=== PATIENT | female | born 1995 | race Caucasian/White ===

== ENCOUNTER → 2019-04-22 11:38 | Outpatient (BNVA) | payer MEDICAID, SELFPAY | PROVIDERS: PCP Nurse Practitioner; Visit Provider Nurse Practitioner Women's Health | DX: Z36.9 Encounter for antenatal screening, unspecified (principal); R79.89 Other specified abnormal findings of blood chemistry; O26.899 Other specified pregnancy related conditions, unspecified trimester; Z67.91 Unspecified blood type, Rh negative; O21.9 Vomiting of pregnancy, unspecified; N83.202 Unspecified ovarian cyst, left side | CPT/HCPCS: 81003; 85007; 85027 ==

== ENCOUNTER → 2019-05-20 09:55 | Outpatient (BNVA) | payer MEDICAID, SELFPAY | PROVIDERS: PCP Nurse Practitioner; Referring Provider Obstetrics & Gynecology; Visit Provider Obstetrics & Gynecology | DX: Z34.82 Encounter for supervision of other normal pregnancy, second trimester (principal) | CPT/HCPCS: 76805 ==

== ENCOUNTER 2019-05-20 13:32 | Outpatient (CLI) | payer MEDICAID, SELFPAY ==
[2019-05-20 15:40] LABS: Basophils # 0.1 10^3/uL (0.0-0.1); Basophils % 0.5 %; Eosinophils # 0.1 10^3/uL (0.0-0.8); Eosinophils % 0.7 %; Hematocrit 33.8 % (37.0-47.0); Hemoglobin 11.1 g/dL (11.5-15.3); Lymphocytes # 2.1 10^3/uL (0.8-4.8); Lymphocytes % 16.8 %; Mean Corpuscular HGB Conc 32.8 g/dL (30.0-36.0); Mean Corpuscular Hemoglobin 30.6 pg (28.0-34.0); Mean Corpuscular Volume 93.1 fL (81-99); Mean Platelet Volume 9.1 fL (7.4-10.4); Monocytes # 0.9 10^3/uL (0.2-0.9); Monocytes % 6.9 %; Neutrophils # 9.4 10^3/uL (1.8-7.7); Neutrophils % 74.4 %; Nucleated Red Blood Cells % 0 %; Platelet Count 541 10^3/cmm (130-400); Red Blood Count 3.63 10^6/uL (4.1-5.3); Red Cell Distribution Width 14.3 % (12.1-15.1); White Blood Count 12.6 10^3/uL (4.0-10.0)
[2019-05-20 16:12] LABS: Alanine Aminotransferase 20 U/L (0-33); Albumin Level 3.4 g/dL (3.5-5.2); Alkaline Phosphatase 97 IU/L (35-105); Anion Gap 21.8 (5-19); Aspartate Amino Transferase 19 U/L (0-32); Blood Urea Nitrogen 6 mg/dL (6-20); Carbon Dioxide 21 mmol/L (22-29); Chloride 99 mmol/L (98-107); Globulin 4.2 g/dL (1.3-4.6); Glomerular Filtration Rate 150.3 mL/min (90-130); Glucose 128 mg/dL (65-115); Iron 60 ug/dL (37-145); Lactate Dehydrogenase 153 U/L (135-214); Percent Saturation 14.7 % (20-50); Potassium 3.8 mmol/L (3.5-5.1); Sodium 138 mmol/L (136-145); Total Bilirubin 0.4 mg/dL (0.15-1.2); Total Iron Binding Capacity 406 mcg/dl; Total Protein 7.6 g/dL (6.6-8.7); Unsaturated Iron Binding 346 ug/dL (112-347)
[2019-05-20 17:04] LABS: LAB Peripheral Smear Sent for Review
--- NOTE | 2019-05-20 18:33 | ONC CON_ITS ---
Dr. Sanchez New Patient Note Patient: Chelsea Sebastian Unit #: [id number]: [id number] Dicatated By: Oleg Sanchez M.D.Date of Visit: May 20, 2019 Onc MED New Patient/Consult Referring Physician: Dr. Edgar De Los Santos M.D. Chief Complaint: Thrombocytosis. History of Present Illness: This is a 24 year-old woman with mild thrombocytosis. This patient has been in good general health. She currently is in her 1st with her estimated date of delivery on October 05. She had been seen in the emergency room on 02/07/2019 with abdominal cramping and spotting. Her urine test was positive. ultrasound was consistent with a 5-week . Her CBC at that time showed normal hemoglobin at 13.2 g with hematocrit 38.6 %. The white blood cell count was mildly elevated at 11,900 and the platelet count was mildly elevated at 488,000. Her comprehensive metabolic profile showed normal renal function with BUN 8 and creatinine 0.5 mg/dL. The liver enzymes were slightly elevated with SGOT 53/32 and the SGPT 82/33 U/L. The alkaline phosphatase was 109/105 IU/L. On 04/22/2019 she had a scheduled OB follow-up visit with Lilian Roca. Her repeat CBC showed hemoglobin down slightly at 11.9 g with white blood cell count 11,900 and platelet count 512,000. A previous CBC done through the urgent care on 05/01/2018 showed normal hemoglobin at 13.8 g with white blood cell count 8900 and platelet count mildly elevated at 462,000. Comprehensive metabolic profile at that time showed normal liver enzymes. She has been feeling pretty good generally. She does have some fatigue with the , but she has normal activity. Her appetite is pretty good. She does not have fever. She complains that she feels hollow all the time, and she also tends to sweat a lot. She does not complain of shortness of breath, cough, or chest pain. She has no GI complaints other than her bowels tend to fluctuate between constipation and diarrhea. She has frequent urination. She has no significant joint or bone pain. She has just occasional headache. She recently has had some dizziness. She has no focal neurologic symptoms. She has had a tendency to bruise easily, mainly on her legs, but that is not anything new. Past Medical History: She has had no prior medical illnesses. Past Surgical History: She has had no prior surgeries. Medications: Vitamins 1 Tablet Oral daily Allergies: No Known Allergies. Social History: Ms. Sebastian is single. She has a life partner. She is a non-smoker. She does not drink alcohol. Family History: Her father is in good health. She has no knowledge regarding the health of her biologic mother. She also has a half-sister with whom she has no contact. A paternal aunt was treated for breast cancer. Review Of Symptoms: Constitutional - She feels pretty good, but she is tired. She has normal activity. Her appetite is good and her weight is steadily increasing due to her . No fever or chills. She has hot flashes and sweating. ECOG score is 0, Eyes - No change in vision, ENMT - No hearing loss or tinnitus. She has sinus congestion. No mouth sores. No sore throat or difficulty swallowing, Hematologic/Lymphatic - She bruises easily, Respiratory - No shortness of breath. No cough. No pleuritic pain or hemoptysis, Cardiovascular - No angina pain. No palpitations, Gastrointestinal - No nausea or vomiting. She has heartburn. Her bowels fluctuate between diarrhea and constipation. No blood in the stool or black stools, Genitourinary (F) - No dysuria or hematuria. She has urinary frequency. No urgency or incontinence, Musculoskeletal - No joint or bone pain, Integumentary - No skin complications, Neurologic - She has occasional headaches. She has some dizziness at times. No numbness/paresthesias or other focal neurologic symptoms, Psychiatric - She gets anxious easily. She is having more difficulty sleeping at night as her gets further along. Vital Signs: Performed on May 20, 2019 14:13: 0, 34.73 (HIGH), 2.31 sq.m, 71.00 in, 100 %, 94 /min, 20 /min, 141/95 mm(hg) (HIGH), 97.8 F (LOW), and 249.0 lbs (HIGH). Physical Examination: Constitutional - She appears to be in good general health, Eyes - Sclerae nonicteric. Conjunctivae clear, ENMT - No lesions noted in the oral cavity, Neck - No mass or thyromegaly, Hematologic/Lymphatic - No cervical, clavicular, or axillary adenopathy, Respiratory - Lungs are clear with good air movement bilaterally, Cardiovascular - Heart rhythm is regular. There is no murmur, gallop, or rub noted, Abdomen - Distended with gravid uterus. Liver and spleen do not appear enlarged. There is no abdominal mass or ascites noted and there is no inguinal adenopathy, Extremities - No edema. Pedal pulses are palpable bilaterally, Integumentary - No rashes. No suspicious skin lesions noted, Neurologic - No focal neurologic deficits noted. Impression: 1. Patient with mild thrombocytosis. Etiology is uncertain. Her platelet count has increased a little since initial CBC in April 2018, but it is uncertain to what extent that may just be reactive. At this point a myeloproliferative disorder cannot be excluded, but it would be unusual at this age. 2. She has mild leukocytosis and mild anemia, but those are most likely just related to . 3. She also had mildly elevated liver enzymes. Etiology/clinical significance is uncertain. 4. She is in her first with estimated date of delivery on October 05. Plan: The laboratory findings were reviewed with the patient and we discussed the clinical implications. She has a mildly elevated platelet count, some component of which may just be reactive. As noted, a myeloproliferative disorder cannot be excluded, but it would be unusual at her age. She will have additional laboratory studies today to include a repeat CBC and comprehensive metabolic profile along with LDH level, serum iron studies, and a FISH study for BCR/abl. I will review the blood smear. She will have further evaluation as indicated. However, as this is not likely to be an urgent issue, I will most likely want to just reassess her sometime within 3 to 6 months after her delivery. Signed By: Oleg Sanchez M.D. <<Signature on File>>
[2019-06-03 13:42] LABS: Miscellaneous Test See Scanned Lab Rpt
[2019-07-15 21:17] LABS: LAB Peripheral Smear Sent for Review
== END 2019-05-20 13:33 | disposition home or self-care (01) ==
PROVIDERS: Internal Medicine Medical Oncology; Referring Provider Obstetrics & Gynecology; Visit Provider Internal Medicine Hematology & Oncology
DX: O26.899 Other specified pregnancy related conditions, unspecified trimester (principal); Z3A.00 Weeks of gestation of pregnancy not specified; D47.3 Essential (hemorrhagic) thrombocythemia; R74.8 Abnormal levels of other serum enzymes
CPT/HCPCS: 80053; 83540; 83550; 83615; 85025; 88374; 99204

== ENCOUNTER → 2019-05-26 08:53 | Outpatient (BNVA) | payer MEDICAID, SELFPAY | PROVIDERS: Visit Provider Obstetrics & Gynecology | DX: Z01.89 Encounter for other specified special examinations (principal) | CPT/HCPCS: 84315 ==

== ENCOUNTER → 2019-06-20 15:20 | Outpatient (BNVA) | payer MEDICAID, SELFPAY | PROVIDERS: Visit Provider Obstetrics & Gynecology | DX: Z34.90 Encounter for supervision of normal pregnancy, unspecified, unspecified trimester (principal) | CPT/HCPCS: 82950; 84315 ==

== ENCOUNTER → 2019-07-09 08:30 | Outpatient (BNVA) | payer MEDICAID, SELFPAY | PROVIDERS: Visit Provider Obstetrics & Gynecology | DX: Z34.90 Encounter for supervision of normal pregnancy, unspecified, unspecified trimester (principal) | CPT/HCPCS: 82951; 82952 ==

== ENCOUNTER → 2019-07-14 12:59 | Outpatient (BNVA) | payer MEDICAID, SELFPAY | PROVIDERS: Visit Provider Obstetrics & Gynecology Female Pelvic Medicine and Reconstructive Surgery | DX: Z34.00 Encounter for supervision of normal first pregnancy, unspecified trimester (principal); O26.899 Other specified pregnancy related conditions, unspecified trimester; Z67.91 Unspecified blood type, Rh negative | CPT/HCPCS: 81000; 85025; 86850 ==

== ENCOUNTER → 2019-07-29 08:40 | Outpatient (BNVA) | payer MEDICAID, SELFPAY | PROVIDERS: Visit Provider Obstetrics & Gynecology | DX: Z34.00 Encounter for supervision of normal first pregnancy, unspecified trimester (principal) | CPT/HCPCS: 81000 ==

== ENCOUNTER → 2019-08-06 10:59 | Outpatient (BNVA) | payer MEDICAID, SELFPAY | PROVIDERS: Visit Provider Obstetrics & Gynecology | DX: Z34.03 Encounter for supervision of normal first pregnancy, third trimester (principal); Z3A.34 34 weeks gestation of pregnancy | CPT/HCPCS: 76816 ==

== ENCOUNTER → 2019-08-11 09:03 | Outpatient (BNVA) | payer MEDICAID, SELFPAY | PROVIDERS: Visit Provider Obstetrics & Gynecology | DX: Z34.90 Encounter for supervision of normal pregnancy, unspecified, unspecified trimester (principal); O26.899 Other specified pregnancy related conditions, unspecified trimester; Z67.91 Unspecified blood type, Rh negative; Z34.03 Encounter for supervision of normal first pregnancy, third trimester; O99.213 Obesity complicating pregnancy, third trimester | CPT/HCPCS: 81000 ==

== ENCOUNTER → 2019-09-08 16:10 | Outpatient (BNVA) | payer MEDICAID, SELFPAY | PROVIDERS: Visit Provider Obstetrics & Gynecology | DX: O26.899 Other specified pregnancy related conditions, unspecified trimester (principal); Z67.91 Unspecified blood type, Rh negative; O99.213 Obesity complicating pregnancy, third trimester; O26.893 Other specified pregnancy related conditions, third trimester; O99.89 Other specified diseases and conditions complicating pregnancy, childbirth and the puerperium; D47.3 Essential (hemorrhagic) thrombocythemia; Z3A.36 36 weeks gestation of pregnancy | CPT/HCPCS: 81000; 87081 ==

== ENCOUNTER → 2019-09-16 09:35 | Outpatient (BNVA) | payer MEDICAID, SELFPAY | PROVIDERS: Visit Provider Obstetrics & Gynecology | DX: O26.899 Other specified pregnancy related conditions, unspecified trimester (principal); Z67.91 Unspecified blood type, Rh negative | CPT/HCPCS: 76816; 81000 ==

== ENCOUNTER → 2019-09-22 15:33 | Outpatient (BNVA) | payer MEDICAID, SELFPAY | PROVIDERS: Visit Provider Obstetrics & Gynecology | DX: O26.899 Other specified pregnancy related conditions, unspecified trimester (principal); Z67.91 Unspecified blood type, Rh negative | CPT/HCPCS: 81000 ==

== ENCOUNTER → 2019-09-25 10:52 | Outpatient (BNVA) | payer MEDICAID, SELFPAY | PROVIDERS: Visit Provider Obstetrics & Gynecology | DX: Z3A.39 39 weeks gestation of pregnancy; Z36.89 Encounter for other specified antenatal screening | CPT/HCPCS: 76816 ==

== ENCOUNTER 2019-09-28 20:45 | Outpatient (CLI) | payer MEDICAID, SELFPAY ==
[2019-09-28 21:00] VITALS: BMI 38.7
[2019-09-28 21:10] VITALS: BP 136/84; PULSE 109; RESP 18; TEMP 36.9
[2019-09-28 21:27] VITALS: RESP 17
[2019-09-28 22:24] VITALS: BP 0/0
[2019-09-28 22:27] VITALS: BP 146/92; PULSE 97
[2019-09-28 22:30] VITALS: RESP 18
[2019-09-28 23:26] VITALS: BP 152/88; PULSE 93
[2019-09-29] VITALS (10 sets, daily range): BP systolic 0–159; BP diastolic 0–96; PULSE 88–101; RESP 18; TEMP 36.7
[2019-09-29 01:09] LABS: Basophils # 0.1 10^3/uL (0.0-0.1); Basophils % 0.4 %; Eosinophils # 0.1 10^3/uL (0.0-0.8); Eosinophils % 0.6 %; Hematocrit 33.7 % (37.0-47.0); Hemoglobin 10.5 g/dL (11.5-15.3); Lymphocytes # 2.6 10^3/uL (0.8-4.8); Lymphocytes % 20.8 %; Mean Corpuscular HGB Conc 31.2 g/dL (30.0-36.0); Mean Corpuscular Hemoglobin 27.5 pg (28.0-34.0); Mean Corpuscular Volume 88.2 fL (81-99); Mean Platelet Volume 10.2 fL (7.4-10.4); Monocytes # 0.9 10^3/uL (0.2-0.9); Monocytes % 7.3 %; Neutrophils # 8.7 10^3/uL (1.8-7.7); Neutrophils % 69.4 %; Nucleated Red Blood Cells # 0.1 /100WBC; Nucleated Red Blood Cells % 0.9 %; Platelet Count 425 10^3/cmm (130-400); Red Blood Count 3.82 10^6/uL (4.1-5.3); Red Cell Distribution Width 17.5 % (12.1-15.1); White Blood Count 12.5 10^3/uL (4.0-10.0)
[2019-09-29 01:10] LABS: Alanine Aminotransferase < 5 U/L (0-33); Albumin Level 3.5 g/dL (3.5-5.2); Alkaline Phosphatase 116 IU/L (35-105); Anion Gap 21.1 (5-19); Aspartate Amino Transferase 16 U/L (0-32); Blood Urea Nitrogen 11 mg/dL (6-20); Calcium 9.5 mg/dL (8.5-10.5); Carbon Dioxide 19 mmol/L (22-29); Chloride 102 mmol/L (98-107); Globulin 3.6 g/dL (1.3-4.6); Glomerular Filtration Rate 121.8 mL/min (90-130); Glucose 84 mg/dL (65-115); Osmolality Calculated 281 mOsm/kg (285-295); Potassium 4.1 mmol/L (3.5-5.1); Sodium 138 mmol/L (136-145); Total Bilirubin 0.4 mg/dL (0.15-1.2); Total Protein 7.1 g/dL (6.6-8.7); Uric Acid 5.3 mg/dL (2.4-5.7)
[2019-09-29 01:39] LABS: Add Urine Microscopic? YES; Bilirubin Urine Neg (NEGATIVE); Blood Urine 3+ (Negative); Glucose Urine UA Norm (Normal); Ketones Urine Negative (Negative); Leukocyte Esterase Urine 1+ (Negative); Nitrate Urine Negative (Negative); Protein Urine Neg (Negative); Specific Gravity, Urine 1.005 (1.005-1.030); Urine Appearance SL Hazy (CLEAR); Urine Color Yellow (Yellow); Urobilinogen Urine Norm (Negative); pH Urine 6.5 (5-7)
[2019-09-29 01:40] LABS: RBC Urine 0-4 /hpf (0-2)
[2019-09-29 01:41] LABS: Bacteria Urine TRACE; Transitional Epi Cells Urine 0-4 /hpf
[2019-09-29 01:42] LABS: Mucus Urine 1+
[2019-09-29 01:43] LABS: Add Urine Culture? No; Calcium Oxalate Crystals Urine 0-4 /hpf
[2019-09-29 02:30] LABS: Urine Creatinine 132 mg/dL (28-217)
[2019-09-29 02:32] LABS: UPRO/UCREAT Ratio 0.27 mg/mg CR; Urine Protein Random 36 mg/dL
== END 2019-09-29 02:07 | disposition home or self-care (01) ==
LOC: OPOB 20:54 → OBGYN 20:55
PROVIDERS: Visit Provider Obstetrics & Gynecology
DX: O26.899 Other specified pregnancy related conditions, unspecified trimester (principal); Z3A.00 Weeks of gestation of pregnancy not specified; R10.9 Unspecified abdominal pain
CPT/HCPCS: 36415; 80053; 81001; 82570; 84156; 84550; 85025; 99211

== ENCOUNTER 2019-09-30 | Inpatient (IN) | payer MEDICAID, SELFPAY ==
[2019-09-29] VITALS (35 sets, daily range): BP systolic 0–167; BP diastolic 0–98; PULSE 81–122; RESP 16–20; TEMP 36.8; O2SAT 98–99; BMI 39.0
[2019-09-29 19:23] LABS: Basophils % 0.3 %; Eosinophils % 0.3 %; Hematocrit 31.4 % (37.0-47.0); Hemoglobin 9.6 g/dL (11.5-15.3); Lymphocytes # 1.9 10^3/uL (0.8-4.8); Lymphocytes % 16.6 %; Mean Corpuscular HGB Conc 30.6 g/dL (30.0-36.0); Mean Corpuscular Hemoglobin 26.7 pg (28.0-34.0); Mean Corpuscular Volume 87.2 fL (81-99); Mean Platelet Volume 10.5 fL (7.4-10.4); Monocytes # 0.6 10^3/uL (0.2-0.9); Monocytes % 5.1 %; Neutrophils % 76.9 %; Nucleated Red Blood Cells # 0.1 /100WBC; Nucleated Red Blood Cells % 0.4 %; Platelet Count 374 10^3/cmm (130-400); Red Cell Distribution Width 17.5 % (12.1-15.1); White Blood Count 11.7 10^3/uL (4.0-10.0)
[2019-09-29] MEDS: miSOPROStol 100 mcg tablet 25 MCG VAGINAL (20:00)
[2019-09-29 20:28] LABS: Slide Review Slide Review Perform
[2019-09-29 22:20] LABS: Urine Appearance Hazy (CLEAR); Urine Color Yellow (Yellow)
[2019-09-29 22:21] LABS: Add Urine Microscopic? YES; Bilirubin Urine Neg (NEGATIVE); Blood Urine 2+ (Negative); Glucose Urine UA Norm (Normal); Ketones Urine Negative (Negative); Leukocyte Esterase Urine 1+ (Negative); Nitrate Urine Negative (Negative); Protein Urine Neg (Negative); Specific Gravity, Urine 1.005 (1.005-1.030); Urobilinogen Urine Norm (Negative); pH Urine 7 (5-7)
[2019-09-29 22:23] LABS: Add Urine Culture? No; Bacteria Urine 1+; RBC Urine 0-4 /hpf (0-2); Squamous Epithelial Cell Urine 15-25 (0-5)
[2019-09-29 22:24] LABS: Alanine Aminotransferase 11 U/L (0-33); Albumin Level 3.3 g/dL (3.5-5.2); Alkaline Phosphatase 103 IU/L (35-105); Anion Gap 19.7 (5-19); Aspartate Amino Transferase 16 U/L (0-32); Blood Urea Nitrogen 7 mg/dL (6-20); Calcium 8.9 mg/dL (8.5-10.5); Carbon Dioxide 19 mmol/L (22-29); Chloride 104 mmol/L (98-107); Globulin 3.1 g/dL (1.3-4.6); Glomerular Filtration Rate 150.3 mL/min (90-130); Glucose 100 mg/dL (65-115); Osmolality Calculated 284 mOsm/kg (285-295); Potassium 3.7 mmol/L (3.5-5.1); Sodium 139 mmol/L (136-145); Total Bilirubin 0.4 mg/dL (0.15-1.2); Total Protein 6.4 g/dL (6.6-8.7)
[2019-09-29 22:25] LABS: Uric Acid 5.1 mg/dL (2.4-5.7)
[2019-09-29 23:01] LABS: Urine Creatinine 127 mg/dL (28-217)
[2019-09-29 23:02] LABS: UPRO/UCREAT Ratio 0.19 mg/mg CR; Urine Protein Random 24 mg/dL
[2019-09-29] MEDS: dextrose 5%-lactated ringers 1,000 ML 125 ML IV (23:34)
[2019-09-29] MEDS: magnesium sulfate premix 4 GM/100 ML PREMIX IV (23:35)
[2019-09-29] MEDS: magnesium sulfate premix 20 GM/500 ML BAG IV (23:58)
[2019-09-30] VITALS (300 sets, daily range): BP systolic 0–167; BP diastolic 0–94; PULSE 64–112; RESP 16–20; TEMP 36.6–37; O2SAT 0–100
--- NOTE | 2019-09-30 04:58 | ANES.PREANE2 ---
Pre-Anesthetic Assessment Pre-Anesthetic Assessment: Height/Weight: Height 1.8 m Weight 127.006 kg Temp Pulse Resp BP Pulse Ox 98.3 F 94 16 141/74 96 09/29/19 23:14 09/30/19 04:56 09/29/19 23:14 09/30/19 04:56 09/30/19 04:55 Preop Diagnosis: IUP Proposed Procedure: Labor epidural Was Beta Siobhan taken within 24 hours: N/A Last Intake: 00:00 Social: Social History: No alcohol and No tobacco Exam: Pre-Anes Outpt Exam: alert, oriented x 3 and clear to auscultation bilaterally Airway: Submandibular: WNL Cervical ROM: WNL MP: 2 History/ROS: No significant history except as noted Pulmonary: Pulmonary: None reported CV/HEM: CV/HEM: HTN : : None reported Hepatic: Hepatic: None reported GI: GI: GERD Metabolic: Metabolic: Morbid obesity Musc/skel: Musc/skel: None reported Neuropsych: Neuropsych: None reported Anesthetic Plan: ASA status: 2 Anesthesia: Anesthesia Evaluation and Eval. for regional block Meds/Allergies Current Medications: Current Medications Generic Name Dose Route Start Last Admin Trade Name Freq PRN Reason Stop Dose Admin Dextrose/Lactated Ringer's 1,000 mls @ 125 m ls/hr 09/29/19 18:42 09/29/19 23:35 Dextrose 5%-Lact ated Ringers IV 75 mls/hr .Q8H PRN Infusion per label comment s Magnesium Sulfate 20 gm in 500 mls @ 50 mls/hr 09/29/19 23:15 09/29/19 23:58 Magnesium Sulfat e Premix IV 50 mls/hr .Q10H EULALIA Administration Misoprostol 25 mcg 09/29/19 20:00 09/29/19 20:00 Cytotec VAGINAL 25 mcg Q4H PRN Administration Cervical Ripening PFSH Anesthesia PFSH: Medical History (Updated 09/29/19 @ 16:34 by Edgar De Los Santos MD) Left ovarian cyst 23 y/o with an LMP of 12/30/2018 and an EDC of 10/06/2019 which places her at 6 0/7 weeks gestation who presents today for an ER follow up for left ovarian cyst. She is asymptomatic. Patient counseled regarding the ultrasound findings suggestive of left ovarian cyst during the ER visit most likely a corpus luteum cyst this early in the . Serial ultrasound follow-up was recommended and encourage her to start care. Follow-up in one week Patient denies medical problems Denies history of: (high blood pressure, diabetes, heart, lung, liver, kidney, thyroid,dvt/pe, partner w/o history of herpes Thrombocytosis Platelets in 500,000 range during . Evaluated by Dr. Sanchez on 05/20/2019. Recommended follow-up appointment 3-6 months after delivery Surgical History No history of previous surgery Family History Family/Other Breast cancer Paternal aunt Hypertension Paternal aunt Patient denies medical problems Denies family history of: diabetes mellitus, heart disease, stroke, hypercholesterolemia, thryoid problems, ovarian cancer, uterine cancer,or colon cancer. Grandfather Diabetes Maternal grandfather Social History Smoking and tobacco status: never smoked Alcohol intake: current Alcohol intake frequency: holidays/special occasions only Female Reproductive History: : 1 Data Anesthesia CBC & Chem 7: 09/29/19 19:00 09/29/19 21:50 Other Labs: Laboratory Results - last 48 hr 09/29/19 09/29/19 09/29/19 19:00 21:50 21:50 WBC 11.7 H RBC 3.60 L Hgb 9.6 L Hct 31.4 L MCV 87.2 MCH 26.7 L MCHC 30.6 RDW 17.5 H Plt Count 374 MPV 10.5 H Neut % (Auto) 76.9 Lymph % (Auto) 16.6 [place] % (Auto) 5.1 Eos % (Auto) 0.3 Baso % (Auto) 0.3 Neut # (Auto) 9.0 H Lymph # (Auto) 1.9 [place] # (Auto) 0.6 Eos # (Auto) 0.0 Baso # (Auto) 0.0 Nucleated RBC % (auto) 0.4 Nucleated RBCs # 0.1 Sodium Potassium Chloride Carbon Dioxide Anion Gap BUN Creatinine GFR Calculation Glucose Calculated Osmolality Uric Acid Calcium Total Bilirubin AST ALT Alkaline Phosphatase Total Protein Albumin Globulin Urine Color Yellow Urine Appearance Hazy A Urine pH 7 Ur Specific [place] 1.005 Urine Protein Neg Urine Glucose (UA) Norm Urine Ketones Negative Urine Blood 2+ H Urine Nitrate Negative Urine Bilirubin Neg Urine Urobilinogen Norm Ur Leukocyte Esterase 1+ H Urine RBC 0-4 H Urine WBC 5-10 H Ur Squamous Epith Cells 15-25 H Ur Transition Epith Cell 5-10 Urine Bacteria 1+ H U Random Total Protein 24 Urine Creatinine 127 Protein/Creatinin Ratio 0.19 09/29/19 09/29/19 21:50 21:50 WBC RBC Hgb Hct MCV MCH MCHC RDW Plt Count MPV Neut % (Auto) Lymph % (Auto) [place] % (Auto) Eos % (Auto) Baso % (Auto) Neut # (Auto) Lymph # (Auto) [place] # (Auto) Eos # (Auto) Baso # (Auto) Nucleated RBC % (auto) Nucleated RBCs # Sodium 139 Potassium 3.7 Chloride 104 Carbon Dioxide 19 L Anion Gap 19.7 H BUN 7 Creatinine 0.5 GFR Calculation 150.3 H Glucose 100 Calculated Osmolality 284 L Uric Acid 5.1 Calcium 8.9 Total Bilirubin 0.4 AST 16 ALT 11 Alkaline Phosphatase 103 Total Protein 6.4 L Albumin 3.3 L Globulin 3.1 Urine Color Urine Appearance Urine pH Ur Specific [place] Urine Protein Urine Glucose (UA) Urine Ketones Urine Blood Urine Nitrate Urine Bilirubin Urine Urobilinogen Ur Leukocyte Esterase Urine RBC Urine WBC Ur Squamous Epith Cells Ur Transition Epith Cell Urine Bacteria U Random Total Protein Urine Creatinine Protein/Creatinin Ratio Cardiac Studies: No Data to Display
--- NOTE | 2019-09-30 05:02 | ANES.PROC ---
Anesthesia Procedures Procedure/Date: 09/30/19 Epidural: Time Out Performed: Yes Consents Signed: Procedure Consent Consent: requested by attending/covering physician, risks and benefits reviewed and patient agrees to proceed Lumbar Level: L3-L4 Epidural position: sitting Epidural procedure: sterile prep of area, 1% lidocaine to numb the area (3cc ), 18 g needle (L3-L4), negative for paresthesia passed, neg for paresthesia, test dose given (5 cc), placed PCEA, no systemic response and 0.2% Ropiavacaine @ mls/hr (13 mls/hr 5 cc Q 10 x 3 max) Additional Comments: HARPER @ 8 cm catheter threaded to 14 cm at skin. VSS see OByx
[2019-09-30] MEDS: oxytocin 30 UNIT/500 ML BAG IV (06:37)
[2019-09-30 06:57] LABS: Magnesium Level (OB Only) 4.7 mg/dL (5.0-7.5)
[2019-09-30] MEDS: dextrose 5%-lactated ringers 1,000 ML 75 ML IV (07:54)
[2019-09-30] MEDS: magnesium sulfate premix 20 GM/500 ML BAG IV ×2 (07:55→16:03)
[2019-09-30] MEDS: ondansetron 2 mg/ML SDV 2 mL 4 MG IVP (07:56)
[2019-09-30] MEDS: acetaminophen 325 mg Tablet 650 MG PO (08:21)
[2019-09-30 13:07] LABS: Magnesium Level (OB Only) 6.6 mg/dL (5.0-7.5)
[2019-09-30] MEDS: lactated ringers 1,000 ML 999 ML IV (18:19)
[2019-09-30] MEDS: famotidine 20 mg/2 mL INJ IVP (18:20)
[2019-09-30] MEDS: metoclopramide 5 mg/mL SDV 2 mL 10 MG IVP (18:20)
[2019-09-30] MEDS: citric acid-sodium citrate 30 mL UDC PO (18:20)
--- NOTE | 2019-09-30 19:28 | PC.NURSE ---
[id number] pt pushing, frias catheter removed per protocol. Pt awake and alert during pushing, so urine output not assessed
--- NOTE | 2019-09-30 19:44 | PM.OP ---
Operative Report Date of procedure: September 30, 2019 Pre-op Diagnosis: 1. Arrest of descent. 2. at 39-1/7 weeks gestation 3. Gestational hypertension 4. Maternal obesity complicating Post-op Diagnosis: 1. Cephalopelvic disproportion due to large fetus. 2. at 39-1/7 weeks gestation. 3. Gestational hypertension - delivered 4. Maternal obesity complicating 5. Viable male infant Procedure Done: Primary low transverse section Specimens removed/disposition: None Surgeon: Anup Meek Program Research Specialist: None Anesthesia: Epidural Estimated blood loss (mL): 1,000 IV fluids (mL): 1,400 Urine output (mL): 700 Complications: None Findings: 1. Viable male infant, cephalic presentation, weighing 10 lbs 1 oz (4560 g), length 21 inches, Apgars 9 at 1 minute and 9 at 5 minutes. 2. Normal-appearing uterus, tubes, and ovaries. Condition: stable Brief History: Patient is a 24-year-old white female 1, para 0 with an LMP of 12/30/2018 and an EDC of 10/06/2019 based on LMP and consistent with a 6-week ultrasound. She presented to labor and delivery in the evening of 09/28 for cervical ripening and induction of labor. She received 1 dose of Cytotec and proceeded to contract through the night. She was noted to have elevated blood pressures during the night and was evaluated for preeclampsia. Protein creatinine ratio was normal, thus ruling out preeclampsia. She was, however, started on magnesium sulf gestational ate for seizure prophylaxis. This was started at about 24:00. She became more uncomfortable and had epidural placed during the night. She was started on Pitocin at approximately 06:30 on 09/29. By around 13:00 she was found to be completely dilated. She initially started pushing and after about 2 hours of pushing she had made minimal descent. Dr. Diaz had discussed proceeding to a section. However, patient and her partner wanted to keep trying with the pushing. Epidural was turned down. Following this, patient started pushing better and wanted to to continue to push. By approximately 17:45, patient's pushes were becoming less and less effective and patient decided to go ahead and proceed to a section. Procedure: Patient was taken to the operating room where epidural anesthesia was redosed. She was prepped and draped in the usual sterile fashion in a dorsal supine position with a leftward tilt. Butler catheter and sequential compression boots had been placed prior to starting the case. A Pfannenstiel skin incision was made with a knife and carried down to the underlying fascia with the knife. Fascia was incised in the midline with the knife and extended laterally with Jay scissors. Superior aspect of the fascia was grasped with Alexa clamps, elevated, and sharply and bluntly dissected. The inferior aspect of the fascia was grasped with Alexa clamps, elevated, and sharply and bluntly dissected. The rectus muscles were in the midline. Peritoneum was sharply entered. Peritoneal incision was extended both superiorly and inferiorly with good visualization of the bladder. An Reji O retractor was placed. The vesicouterine peritoneum was tented up and sharply entered. It was extended laterally and the bladder flap was created digitally. A transverse incision was made with the knife in the lower uterine segment. Clear fluid was obtained upon entry into the uterine cavity. The 's head was delivered and no nuchal cords were noted. The rest of the infant delivered atraumatically. Nose and mouth were suctioned with bulb suction. Cord was clamped and cut and the infant was handed off to Dr. Barros and the waiting nurses. Cord blood was obtained. Placenta was delivered via uterine massage. Patient received 20 units of Pitocin in the IV fluids. The uterus was cleared of clots and debris. The uterine incision was closed in a running locking fashion using 0 Vicryl suture. The incision was imbricated using 0 Vicryl suture in a horizontal mattress fashion. The incision was inspected and noted to be hemostatic. The uterine incision was irrigated and noted to be hemostatic. The gutters were cleared of clots and blood. The rectus muscles and peritoneum were reapproximated in the midline using interrupted stitches of 2-0 Vicryl suture. The muscle layer was irrigated and noted to be hemostatic. The fascia was reapproximated using 0 Vicryl suture in a running fashion. The subcutaneous layer was irrigated and brought to hemostasis using electrocautery. It was reapproximated using 3-0 plain suture in an interrupted fashion. Skin was reapproximated using 4-0 Vicryl suture in a subcuticular fashion. Steri-Strips were applied. Patient tolerated the procedures well. Sponge, needle, and instrument counts were correct. DRAINS: Butler catheter POSTOPERATIVE STATUS: The patient was left to recover in satisfactory condition
[2019-10-01] VITALS (7 sets, daily range): BP systolic 126–143; BP diastolic 71–87; PULSE 78–98; RESP 16–20; TEMP 36.6–36.8; O2SAT 94–97
[2019-10-01] MEDS: ketorolac 30 mg/mL INJ IVP ×2 (00:43→05:57)
[2019-10-01] MEDS: dextrose 5%-lactated ringers 1,000 ML 125 ML IV (00:43)
--- NOTE | 2019-10-01 03:59 | PC.NURSE ---
ASSISTED PT UP TO SIT ON SIDE OF BED FOR APPROXIMATELY 5 MINUTES, THEN ASSISTED PT UP TO SIT IN BEDSIDE CHAIR. PT TOLERATED WELL. PT HOLDING INFANT, BEDSIDE TABLE AND CLWR.
--- NOTE | 2019-10-01 05:14 | PC.NURSE ---
AT 0450, THIS NURSE ASSISTED PT BACK TO BED. PT TOLERATED WELL. BEDSIDE TABLE AND CLWR.
--- NOTE | 2019-10-01 08:42 | PM.PN ---
Subjective Subjective: Interval history: Denies any problems or concerns this morning. States pain is been well controlled. Reports passing flatus. Reports tolerating clear liquid diet. Denies shortness of breath or chest pains. Reports some lightheadedness with initially getting up to chair this morning. States bleeding has slowed. Vitals/I&O/Wt Last Vital Signs Temp 97.9 F 10/01/19 05:50 Pulse 96 10/01/19 05:50 Resp 18 10/01/19 05:50 BP 135/78 10/01/19 05:50 Pulse Ox 94 10/01/19 05:50 09/30/19 10/01/19 10/01/19 22:59 06:59 14:59 Intake Total 1969.792 / 3141.883 347.917 / 3489.800 Output Total 2750 / 3300 750 / 4050 Balance -780.208 / -158.117 -402.083 / -560.200 Weight last 48 hrs Weight 280 lb Physical Exam Const: COMMON NORMALS: no acute distress, average body habitus, alert and well nourished GENERAL APPEARANCE: well developed ORIENTATION/CONSCIOUSNESS: Yes oriented to person, Yes oriented to place and Yes oriented to time Resp: COMMON NORMALS: normal respiratory effort and clear to auscultation bilaterally AUSCULTATION: clear to auscultation bilaterally Cardio: COMMON NORMALS: regular rate, regular rhythm, No gallops present (Cardio), No murmurs present (Cardio) and No rub (Cardio) RATE: regular rate RHYTHM: regular rhythm GI: COMMON NORMALS: Soft to palpation, No hepatosplenomegaly present and no masses (Except for tender firm uterus approximately 1 fingerbreadth below the umbilicus.) INSPECTION: Yes incision (Dressing dry.) AUSCULTATION: Yes normoactive bowel sounds PALPATION: Yes Soft to palpation, Yes Tenderness to palpation present (GI) (Lower abdominal), Yes No hepatosplenomegaly present and No Hernia present : EXTERNAL FEMALE EXAM: No Hernia present Extremity: COMMON NORMALS: no calf tenderness (Bilateral) NARRATIVE EXTREMITY EXAM: SCDs in use. GENERAL: Yes edema (Trace lower extremity bilaterally.) Neuro: SENSORIUM/ORIENTATION: Yes alert, Yes oriented to person, Yes oriented to place and Yes oriented to time Psych: COMMON NORMALS: normal affect MOOD & AFFECT: Yes euthymic mood Urinary Catheter Management^: Butler: Cath Placed During This Visit: yes, but has since been removed by the nurse Reason for Continuing Indwelling Catheter: Perioperative Use in Selected Surgeries Urinary Catheter Date of Insertion: 09/30/19 Urinary Catheter Time of Insertion: 18:30 Date Urinary Catheter Removed: 09/30/19 Time Urinary Catheter Discontinued: 14:16 Data : 09/29/19 19:00 09/29/19 21:50 A&P Assessment and plan (1) Cephalopelvic disproportion due to unusually large fetus: Postoperative day 1, status post primary section for cephalopelvic disproportion with large fetus. Patient is doing well at this time. She has been advanced to a regular diet this morning. Discontinue Butler catheter this morning. IV converted to a PIID. Increase activities this morning. If she does well with this, she may then shower. Discussed with patient pain management through the day as the Duramorph starts wearing off. Switch to oral pain medication later today. Status: Acute Qualifiers: Fetus number: single or unspecified fetus Qualified Code(s): O33.5XX0 - Maternal care for disproportion due to unusually large fetus, not applicable or unspecified (2) Anemia during , delivered, current hospitalization: Patient was noted to be anemic prior to her section. Her initial H&H on admission was 9.6 & 31.4. She is symptomatic this morning with initially getting out of bed. We will see how she does through the morning. If she continues to be symptomatic, then blood transfusion may be necessary. This was discussed with the patient. Status: Acute (3) Rh negative, delivered, current hospitalization: Patient is Rh-. Baby is being typed to determine if mom needs RhoGam. Status: Acute Attestations Medical Necessity Statement*: Patient is just over 12 hours after section. Coding Level of Care Code Acute Emergency Room Registered Nurse for [facility] Laura Diagnoses Cephalopelvic disproportion due to unusually large fetus O33.5XX0 Fetus number: single or unspecified fetus Anemia during , delivered, current hospitalization O99.02 Rh negative, delivered, current hospitalization O26.899; Z67.91
[2019-10-01 08:52] LABS: Hematocrit 22.7 % (37.0-47.0); Mean Corpuscular HGB Conc 30.8 g/dL (30.0-36.0); Mean Corpuscular Volume 87.6 fL (81-99); Mean Platelet Volume 9.8 fL (7.4-10.4); Platelet Count 331 10^3/cmm (130-400); Red Blood Count 2.59 10^6/uL (4.1-5.3); Red Cell Distribution Width 17.8 % (12.1-15.1); White Blood Count 13.3 10^3/uL (4.0-10.0)
[2019-10-01] MEDS: docusate sodium 100 mg Capsule PO (09:20)
--- NOTE | 2019-10-01 11:17 | ANE.PACU2 ---
Inpatient post-anesthesia follow up: Airway intact: Yes Vital signs: Temperature 97.9 F Pulse Rate 96 Respiratory Rate 18 Blood Pressure 135/78 Pulse Oximetry 94 Oxygen Delivery Me thod Room Air Oxygen Flow Rate Fraction of Inspir ed Oxygen Hydration adequate: Yes Nausea and vomiting: No Mental status: Baseline Additional Comments: Up and walking since epidural removed, episode of headache yesterday, but cleared today. Has not urinated since frias removed a couple of hours ago.
[2019-10-01] MEDS: HYDROcodone-acetaminophen 5-325 mg Tablet PO (13:31)
--- NOTE | 2019-10-01 23:21 | PC.NURSE ---
TELFA PAD, ABD PAD AND PAPER TAPE REMOVED FROM INCISION BY PROTEIN CHEMIST. SCANT DRIED SANGUINEOUS DISCHARGE NOTED AROUND SUTURES. NO REDNESS NOTED, AREA WARM TO TOUCH AND DRY, SURROUNDING TISSUE INTACT. STERISTRIPS INTACT OVER SUTURES. PT TOLERATED WELL.
[2019-10-02 04:00] VITALS: BP 129/82; PULSE 90; RESP 18; TEMP 36.8; O2SAT 96
[2019-10-02] MEDS: alum-mag-hydroxide-sime 30 mL UDC PO (04:03)
[2019-10-02] MEDS: HYDROcodone-acetaminophen 5-325 mg Tablet PO ×2 (04:03→09:40)
--- NOTE | 2019-10-02 09:20 | PM.OBGYDC ---
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 Date of Admission: 09/30/19 00:00 Date of Discharge: 10/11/19 Attending Provider at Admission: Shilpi Fan MD Attending Provider at Discharge: Anup Meek MD Diagnoses at Discharge Discharge Diagnosis (1) Cephalopelvic disproportion due to unusually large fetus: Status: Acute Qualifiers: Fetus number: single or unspecified fetus Qualified Code(s): O33.5XX0 - Maternal care for disproportion due to unusually large fetus, not applicable or unspecified (2) Anemia during , delivered, current hospitalization: Status: Acute (3) Rh negative, delivered, current hospitalization: Status: Resolved Reason for Visit Reason for Visit: induction Hospital Course Hospital Course: Patient is a 24-year-old white female 1, para 0 with an LMP of 12/30/2018 and an EDC of 10/06/2019 based on LMP and consistent with a 6-week ultrasound. She presented to labor and delivery on 09/29/2019 at 39-0/7 weeks gestation for Cytotec cervical ripening and induction of labor. She initially received 1 dose of Cytotec 25 mcg vaginally and proceeded to contract through the night. She was also found to be anemic on admission with a hemoglobin of 10.5. During the night she was noted to have elevated blood pressures and was evaluated for preeclampsia. During this time she was started on magnesium sulfate for seizure prophylaxis. She did rule out for preeclampsia. Blood pressures were not high enough to require blood pressure medications. In the morning of 09/29 she was started on Pitocin. She had had epidural placed during the night. She was noted to be complete at around 1300 and started pushing. She pushed for approximately 2 hours and had made minimal descent. Patient and her partner wanted to continue with pushing at that time. Epidural was turned down and she was reported to be having descent with the pushing. At 1700 care was turned over from Dr. Diaz to myself. By 17:45 she had really not brought the baby down past a +1 station. Her pushes were becoming less and less effective and she decided to go ahead and proceed to a section. A primary low transverse section was performed with the delivery of a viable male infant weighing 10 pounds 1 ounce (4560 g) with a length of 21 inches and Apgars of 9 at 1 minute and 9 at 5 minutes. She received Duramorph in her epidural for pain management following delivery. Patient did well following surgery. Magnesium was discontinued after delivery. POST OPERATIVE DAY 1 She reported doing well. Her pain was well controlled with Duramorph. She had started passing flatus during the night. She was tolerating liquids that morning without nausea or vomiting. She reported some initial lightheadedness with getting up to the chair that morning. She denied shortness of breath or chest pains. She stated that her bleeding had slowed some. Her activities were increased during the day. She was switched to oral pain medications. Her diet was advanced. She was anemic with a hemoglobin of 7.0 that morning. This was not unexpected based upon the amount of bleeding that she had during section. Her lightheadedness and dizziness went away during the day. She did not require transfusion. POSTOPERATIVE DAY 2 Patient reports doing well. She denies any lightheadedness or dizziness with ambulation. She denied any shortness of breath or chest pains. She reports that her pain is been well controlled on oral medications. She reports tolerating a regular diet without nausea or vomiting. She reports passing flatus. She states that her bleeding is about like a heavy period at this time. She is breast-feeding. She would like to be released to go home today. Physical Exam: See below Plan Discharged to home. Discharge instructions discussed with patient. control discussed with patient and she is considering an IUD. Patient was instructed to take iron at home on a daily basis in addition to her vitamins. Patient is to follow-up in the office in 2 and 6 weeks. Information Peripartum Data: Infant Delivery Method: Section Laceration description: None Episiotomy description: None complications: none [place]: 1: Gender: Male Disposition of : home Physical Exam Const: COMMON NORMALS: no acute distress, average body habitus, alert and well nourished GENERAL APPEARANCE: well developed ORIENTATION/CONSCIOUSNESS: Yes oriented to person, Yes oriented to place and Yes oriented to time Resp: COMMON NORMALS: normal respiratory effort and clear to auscultation bilaterally AUSCULTATION: clear to auscultation bilaterally Cardio: COMMON NORMALS: regular rate, regular rhythm, No gallops present (Cardio), No murmurs present (Cardio) and No rub (Cardio) RATE: regular rate RHYTHM: regular rhythm GI: COMMON NORMALS: Soft to palpation, No hepatosplenomegaly present and no masses (Except for tender, firm uterus, approximately 1 fingerbreadth below the umbilicus) INSPECTION: Yes incision (Clean, dry, and intact with Steri-Strips present) AUSCULTATION: Yes normoactive bowel sounds PALPATION: Yes Soft to palpation, Yes Tenderness to palpation present (GI) (Lower abdominal), Yes No hepatosplenomegaly present and No Hernia present : EXTERNAL FEMALE EXAM: No Hernia present Extremity: COMMON NORMALS: no calf tenderness GENERAL: Yes edema (Trace to 1+ lower extremity bilateral edema) Neuro: SENSORIUM/ORIENTATION: Yes alert, Yes oriented to person, Yes oriented to place and Yes oriented to time Psych: COMMON NORMALS: normal affect MOOD & AFFECT: Yes euthymic mood Urinary Catheter Management^: Butler: Cath Placed During This Visit: yes, but has since been removed by the nurse Reason for Continuing Indwelling Catheter: Decision to DC Catheter Urinary Catheter Date of Insertion: 09/30/19 Urinary Catheter Time of Insertion: 18:30 Date Urinary Catheter Removed: 10/01/19 Time Urinary Catheter Discontinued: 09:30 Discharge Data Data Completed and Pending: Pending at discharge Category Date Time Status Complete Crossmat ch Routine Lab 09/30/19 22:21 Results Rho D Immune Glob ulin Routine Lab 09/30/19 22:21 Results Type and Screen R outine Lab 09/30/19 22:21 Results Labs from last 24 hours 10/01/19 09/29/19 08:35 23:55 Blood Type A Negative Rho(D) Type Negative Antibody Screen Negative Screen Negative Cancelled Vitals: Last Vital Signs Temp 98.3 F 10/02/19 04:00 Pulse 90 10/02/19 04:00 Resp 18 10/02/19 04:00 BP 129/82 10/02/19 04:00 Pulse Ox 96 10/02/19 04:00 Discharge Plan Discharge Patient Disposition: Home, Self-Care Condition: Stable Prescriptions: New hydrocodone-acetaminophen 5-325 mg Tablet 1 - 2 tab PO Q6H PRN (Reason: Moderate To Severe Pain) Qty: 30 RF: 0 Continued prenat.vits,issac,[id number] Tablet 1 tab PO DAILY RF: 0 ferrous sulfate 325 mg (65 mg iron) Tablet 325 mg PO DAILY RF: 0 Discharge Orders: Discharge Order (Routine); Ordered 10/02/19 Ordered By: Anup Meek Referrals: Edgar De Los Santos MD [Physician] - 6 Weeks ( exam) Anup Meek MD [Physician] - 2 weeks (* Your 2 week post operative appointment is 10/15/2019 at 2:30pm. * Your 6 week appointment is 11/18/2019 at 1:45pm. ) Discharge Diet: Regular Discharge Activity: Limit activity as instructed Patient Instructions: Hydrocodone/Acetaminophen (By mouth), OB C, OB Discharge Report, OB Endometrial Ablation - [facility], OB Food/Drug Interaction Guide, OB Home Care, OB Proud Parent Packet Activity Restrictions/Additional Instructions: [place] Ibuprofen 200 mg, 3 tablets four times a day or 4 tablets three times a day, as needed for pain MiraLax (or store brand), use as needed for constipation. 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
[2019-10-02] MEDS: measles,mumps,rubella pf Vial (w/diluent) 0.5 ML SUBCUT (11:54)
[2019-10-02 12:03] VITALS: BP 139/76; PULSE 90; RESP 18; TEMP 36.8; O2SAT 96
== END 2019-10-02 12:35 | disposition home or self-care (01) | DRG 788 ==
LOC: OPOB 12:42
PROVIDERS: Obstetrics & Gynecology; Admitting Provider Obstetrics & Gynecology; Visit Provider Obstetrics & Gynecology
PROC: 10D00Z1 Extraction of Products of Conception, Low, Open Approach (ICD-10-PCS; CPT 59514; principal; 2019-09-30 18:25)
DX: O33.5XX0 Maternal care for disproportion due to unusually large fetus, not applicable or unspecified (principal); Z3A.39 39 weeks gestation of pregnancy; Z37.0 Single live birth; O13.4 Gestational [pregnancy-induced] hypertension without significant proteinuria, complicating childbirth; O99.214 Obesity complicating childbirth; O99.02 Anemia complicating childbirth; D64.9 Anemia, unspecified
CPT/HCPCS: 12345; 36415; 51702; 59025; 59409; 80053; 81000; 81001; 82570; 83735; 84156; 84550; 85025; 85027; 85460; 86850; 86900; 90384; 90707; 96372; 96374; 96375; 98960; J0690; J1885; J2001; J2274; J2405; J2590; J2765; J2795; J3010; J3475; J3490; J7030

== ENCOUNTER → 2020-06-25 14:11 | Outpatient (BNVA) | payer OTHER, MEDICAID, SELFPAY | PROVIDERS: Visit Provider Family Medicine | DX: Z13.6 Encounter for screening for cardiovascular disorders (principal); R53.83 Other fatigue; Z68.32 Body mass index [BMI] 32.0-32.9, adult | CPT/HCPCS: 80053; 84439; 84443; 84480; 85025 ==

== ENCOUNTER 2020-08-05 08:57 | Outpatient (CLI) | payer OTHER, MEDICAID, SELFPAY ==
[2020-08-05 09:51] LABS: Basophils # 0.1 10^3/uL (0.0-0.1); Basophils % 0.8 %; Eosinophils # 0.1 10^3/uL (0.0-0.8); Eosinophils % 1.2 %; Hematocrit 41.1 % (37.0-47.0); Lymphocytes # 2.8 10^3/uL (0.8-4.8); Lymphocytes % 31.5 %; Mean Corpuscular HGB Conc 31.6 g/dL (30.0-36.0); Mean Corpuscular Hemoglobin 28.4 pg (28.0-34.0); Mean Corpuscular Volume 89.7 fL (81-99); Mean Platelet Volume 9.1 fL (7.4-10.4); Monocytes # 0.6 10^3/uL (0.2-0.9); Monocytes % 6.5 %; Neutrophils # 5.25 10^3/uL (1.8-7.7); Neutrophils % 59.5 %; Nucleated Red Blood Cells % 0 %; Platelet Count 516 10^3/cmm (130-400); Red Blood Count 4.58 10^6/uL (4.1-5.3); Red Cell Distribution Width 15.7 % (12.1-15.1); White Blood Count 8.8 10^3/uL (4.0-10.0)
[2020-08-05 11:01] LABS: LAB Peripheral Smear Sent for Review
== END 2020-08-05 08:58 | disposition home or self-care (01) ==
LOC: ONCMED 09:01
PROVIDERS: Visit Provider Internal Medicine Medical Oncology
DX: D47.3 Essential (hemorrhagic) thrombocythemia (principal); D72.820 Lymphocytosis (symptomatic); Z79.899 Other long term (current) drug therapy
CPT/HCPCS: 36415; 85025

== ENCOUNTER → 2023-02-01 13:00 | Outpatient (BNVA) | payer MEDICAID, SELFPAY | PROVIDERS: Visit Provider Nurse Practitioner Women's Health | DX: Z12.4 Encounter for screening for malignant neoplasm of cervix (principal) | CPT/HCPCS: 88175 ==